=== PATIENT | male | born 1985 | race Caucasian/White ===

== ENCOUNTER 2018-11-11 01:00 | Emergency (ER) | payer OTHER ==
[2018-11-11 02:03] VITALS: BP 118/80; PULSE 77; TEMP 98.4; BMI 28.1
[2018-11-11] MEDS ORDERED: morphine CARPU-JECT 2 MG/1 ML DISP.SYRIN IM ONE (03:02)
[2018-11-11] MEDS ORDERED: MORPHINE SULFATE 2 MG/ML VIAL ONE (03:05)
--- NOTE | 2018-11-11 03:59 | PDOC ---
Attending Attestation - Resident Resident Name: Alejandra Small - ED Attending Attestation I have performed the following: I have examined & evaluated the patient, The case was reviewed & discussed with the resident, I agree w/resident's findings & plan, Exceptions are as noted - HPI HPI: 11/11/18 08:27 33M denies pmh here with R ankle/foot pain after a ceiling beam was dropped on his foot, rolling it into a forced eversion. No other injuries, has been antalgic since accident - Physicial Exam PE: 11/11/18 08:31 Agree with exam as documented by resident - Medical Decision Making 11/11/18 08:31 no midfoot px but +lateral mal px f/u xr analgesia xr w/o obvious acute bony injury bulky monroy dc with ortho f/u
--- NOTE | 2018-11-11 06:12 | PDOC ---
History of Present Illness - General Chief Complaint: Injury Stated Complaint: R FOOT INJURY Time Seen by Provider: 11/11/18 02:32 History Source: Patient - History of Present Illness Initial Comments: The patient is a 33 year old male with no significant reported PMH who presents to the ED c/o foot injury yesterday. 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 No head trauma or LOC. Patient was ambulatory post injury however notes he was limping and his pain increased over the last few hours prompting his visit to the ED. Past History - Past Medical History Allergies/Adverse Reactions: Allergies Allergy/AdvReac Type Severity Reaction Status Date / Time No Known Allergies Allergy Verified 11/11/18 01:39 Home Medications: Ambulatory Orders NK [No Known Home Medication] 11/11/18 COPD: No - Suicide/Smoking/Psychosocial Hx Smoking History: Never smoked Review of Systems - Review of Systems Constitutional: No: Chills, Fever Respiratory: No: Cough, Shortness of Breath Cardiac (ROS): No: Chest Pain, Lightheadedness, Palpitations, Syncope ABD/GI: No: Constipated, Diarrhea, Nausea, Vomiting : No: Burning, Dysuria *Physical Exam - Vital Signs Last Vital Signs Temp Pulse Resp BP Pulse Ox 98.4 F 77 18 118/80 99 11/11/18 01:39 11/11/18 01:39 11/11/18 01:39 11/11/18 01:39 11/11/18 01:39 - Physical Exam Comments: 11/11/18 08:19 Triage VS reviewed Awake, alert, uncomfortable, non-toxic appearing Extremity: 2+ RLE DP pulse, lateral malleolus TTP, intact platar/dorsiflexion Neuro: CN II-XII intact, A&O x3 HEENT: EOMI, normocephalic, atraumatic, neck supple, trachea midline Integumentary: dry, warm, no noted rash/lesion/laceration 11/11/18 08:22 ED Treatment Course - RADIOLOGY Radiology Studies Ordered: Category Date Time Status ANKLE & FOOT-RIGHT* [RAD] Stat Radiology 11/11/18 03:49 Taken - Medications Given in the ED: ED Medications Discontinued Medications Generic Name Dose Route Start Last Admin Trade Name Freq PRN Reason Stop Dose Admin Morphine Sulfate 2 mg 11/11/18 03:02 11/11/18 03:13 Morphine Injection - IM 11/11/18 03:03 2 mg ONCE ONE Administration Medical Decision Making - Medical Decision Making 11/11/18 08:21 33 year old male s/p R foot injury with R ankle eversion. VS unremarkable Lateral malleolus TTP - will obtain ankle XR as per [place] ankle rules. NSAID for pain control My read of XR shows no acute fracture/dislocation Will mayito wrap patient for comfort and discharge w/crutches, return precautions and ortho referral. I discussed the physical exam findings, ancillary test results and final diagnoses with the patient. I answered all of the patient's questions. The patient was satisfied with the care received and felt comfortable with the discharge plan and treatment plan. The patient will return to the Emergency Department with any new, persistent or worsening symptoms. *DC/Admit/Observation/Transfer Diagnosis at time of Disposition: Ankle injury - Discharge Dispostion Disposition: HOME Condition at time of disposition: Good Decision to Admit order: No - Referrals Referrals: Mckenzie Jeffery [Primary Care Provider] - Benito Montgomery DO [Staff Physician] - - Patient Instructions Printed Discharge Instructions: DI for Ankle Sprain Additional Instructions: You can take Motrin up to 800 mg three times daily for 3 days for pain. Should your pain increase after 5 days please make an orthopedic surgeon - we have provided a referral or you can call your insurance company for a list of referrals. Return to the ED with any new/worsening/concerning symptoms. - Post Discharge Activity
== END 2018-11-11 06:16 | disposition home or self-care (01) ==
LOC: JER 01:00
PROC: 3E023NZ Introduction of Analgesics, Hypnotics, Sedatives into Muscle, Percutaneous Approach (ICD-10-PCS; principal; 2018-11-11)
DX: S99.911A Unspecified injury of right ankle, initial encounter (principal); X58.XXXA Exposure to other specified factors, initial encounter; Y93.89 Activity, other specified; Y92.89 Other specified places as the place of occurrence of the external cause
CPT/HCPCS: 73610-TC-RT-FY; 73630-TC-RT-FY; 99281-25